=== PATIENT | female | born 1965 | race Hispanic/Latino ===

== ENCOUNTER 2018-05-15 11:30 | Outpatient (CLI) | payer OTHER | END 2018-05-15 11:31 | disposition home or self-care (01) | LOC: BICMAMMO 11:30 | PROVIDERS: ATTEND Family Medicine | DX: Z12.31 Encounter for screening mammogram for malignant neoplasm of breast (principal) | CPT/HCPCS: 77067 ==

== ENCOUNTER 2018-10-25 14:05 | Outpatient (CLI) | payer OTHER ==
--- NOTE | 2018-10-25 16:25 | ULT ---
ULTRASOUND THYROID STANDARD: 10/25/18 HISTORY: E78.2, mixed hyperlipidemia. COMPARISON: None. TECHNIQUE: Real time reis scale and color evaluation of the thyroid was performed. Isthmus measures less than 2 mm AP dimension. Right lobe measures 2.2 x 1.2 x 0.6 cm and left lobe measures 2.3 x 1 x 0.9 cm. The thyroid is very small with minimal vascularity. Just extensive heterogeneity of the left lobe wit hout a definite nodule. IMPRESSION: Small heterogeneous thyroid likely sequela of chronic thyroiditis. POS: [facility]
== END 2018-10-25 14:06 | disposition home or self-care (01) ==
LOC: BICULT 14:05
PROVIDERS: ATTEND Family Medicine
DX: E78.2 Mixed hyperlipidemia (principal)
CPT/HCPCS: 76536

== ENCOUNTER 2019-02-05 14:17 | Outpatient (CLI) | payer OTHER ==
--- NOTE | 2019-02-05 15:13 | ULT ---
US Abdominal History: [Elevated alkaline phosphatase. Constipation. Suprapubic pain.] Comparison: None. Findings: Real-time grayscale, spectral analysis and color evaluation of the abdomen was performed. The visualized portion of the pancreas is unremarkable. Diffuse increased hepatic echotexture. Liver measures 17.8 cm in length. Portal vein is patent with antegrade flow. The gallbladder is normal without wall thickening. Low-gra de sludge. No pericholecystic fluid. Both kidneys are normal in size and echotexture without mass, hydronephrosis, or abnormal calcificati ons. Spleen measures 9.3 cm in length. Impression: Diffuse hepatic steatosis. No evidence for obstructive uropathy or obstructive biliary pr ocess.
== END 2019-02-05 14:18 | disposition home or self-care (01) ==
LOC: BICULT 14:17
PROVIDERS: ATTEND Internal Medicine Gastroenterology
DX: K59.00 Constipation, unspecified (principal); R10.33 Periumbilical pain; R74.8 Abnormal levels of other serum enzymes; K76.0 Fatty (change of) liver, not elsewhere classified
CPT/HCPCS: 76700

== ENCOUNTER 2019-12-10 12:05 | Outpatient (CLI) | payer OTHER ==
--- NOTE | 2019-12-13 13:28 | MMO ---
Bilateral MAMMO Bilat Screen [facility]. CLINICAL HISTORY: Patient is 54 years old and is seen for screening. The patient has no family history of breast cancer. The patient has no personal history of cancer. VIEWS: The views performed were: bilateral craniocaudal with tomosynthesis and bilateral mediolateral oblique with tomosynthesis. FILMS COMPARED: The present examination has been compared to prior imaging studies performed at [facility] on 02/22/2012, 08/17/2013, 11/12/2014 and 12/12/2015. This study has been interpreted with the assistance of computer-aided detection. MAMMOGRAM FINDINGS: There are scattered fibroglandular densities. Finding 1: There are stable benign appearing calcifications seen in both breasts. Finding 2: There is a stable mass measuring 10 millimeters with circumscribed margins seen in the lower-inner region of the left breast. There are no suspicious masses, suspicious calcifications, or new areas of architectural distortion. IMPRESSION: THERE IS NO MAMMOGRAPHIC EVIDENCE OF MALIGNANCY. A ROUTINE FOLLOW-UP MAMMOGRAM IN 1 YEAR IS RECOMMENDED. THE RESULTS OF THIS EXAM WERE SENT TO THE PATIENT. ACR BI-RADS Category 2 - Benign finding MAMMOGRAPHY NOTE: 1. A negative mammogram report should not delay a biopsy if a dominant of clinically suspicious mass is present. 2. Approximately 10% to 15% of breast cancers are not detected by mammography. 3. Adenosis and dense breasts may obscure an underlying neoplasm. Reported by: CHRIS TRAN MD Electonically Signed: [id number]
== END 2019-12-10 12:06 | disposition home or self-care (01) ==
LOC: BICMAMMO 12:05
PROVIDERS: ATTEND Family Medicine
DX: Z12.31 Encounter for screening mammogram for malignant neoplasm of breast (principal)
CPT/HCPCS: 77063; 77067

== ENCOUNTER 2019-12-18 15:12 | Outpatient (CLI) | payer OTHER | END 2019-12-18 15:13 | disposition home or self-care (01) | LOC: CTENTCT 15:12 | PROVIDERS: ATTEND Otolaryngology Plastic Surgery within the Head & Neck | DX: J01.91 Acute recurrent sinusitis, unspecified (principal) | CPT/HCPCS: 70486 ==

== ENCOUNTER 2021-04-20 08:49 | Outpatient (CLI) | payer OTHER | END 2021-04-20 08:50 | disposition home or self-care (01) | LOC: BICMAMMO 08:49 | PROVIDERS: ATTEND Family Medicine | DX: Z12.31 Encounter for screening mammogram for malignant neoplasm of breast (principal) | CPT/HCPCS: 77063; 77067 ==